=== PATIENT | female | born 1955 | race Two or more races ===

== ENCOUNTER 2018-01-23 08:05 | Outpatient (CLI) | payer OTHER | END 2018-01-23 08:18 | disposition home or self-care (01) | LOC: LAB 08:05 | DX: E11.65 Type 2 diabetes mellitus with hyperglycemia (principal); E78.2 Mixed hyperlipidemia; E03.8 Other specified hypothyroidism; R80.8 Other proteinuria ==

== ENCOUNTER 2018-05-06 07:36 | Outpatient (CLI) | payer OTHER | END 2018-05-06 07:42 | disposition home or self-care (01) | LOC: LAB 07:36 | DX: E66.09 Other obesity due to excess calories (principal); E11.65 Type 2 diabetes mellitus with hyperglycemia; E78.2 Mixed hyperlipidemia; E03.8 Other specified hypothyroidism; R80.8 Other proteinuria ==

== ENCOUNTER 2018-08-01 11:49 | Outpatient (CLI) | payer OTHER | END 2018-08-01 18:28 | disposition home or self-care (01) | LOC: LAB 11:49 | DX: E11.65 Type 2 diabetes mellitus with hyperglycemia (principal); E78.2 Mixed hyperlipidemia; E03.8 Other specified hypothyroidism; E55.9 Vitamin D deficiency, unspecified; R80.8 Other proteinuria; N39.0 Urinary tract infection, site not specified; N39.3 Stress incontinence (female) (male) ==

== ENCOUNTER → 2018-08-02 12:48 | Outpatient (CLI) | payer OTHER | END | disposition home or self-care (01) | LOC: LAB 12:48 | DX: E11.65 Type 2 diabetes mellitus with hyperglycemia (principal); E78.2 Mixed hyperlipidemia; E03.8 Other specified hypothyroidism; E55.9 Vitamin D deficiency, unspecified; R80.8 Other proteinuria; N39.0 Urinary tract infection, site not specified; N39.3 Stress incontinence (female) (male); Z12.11 Encounter for screening for malignant neoplasm of colon ==

== ENCOUNTER 2018-08-16 11:51 | Outpatient (CLI) | payer OTHER | END 2018-08-16 11:59 | disposition home or self-care (01) | LOC: LAB 11:51 | DX: N39.0 Urinary tract infection, site not specified (principal); R82.79 Other abnormal findings on microbiological examination of urine ==

== ENCOUNTER 2019-01-03 07:11 | Outpatient (CLI) | payer OTHER | END 2019-01-03 07:16 | disposition home or self-care (01) | LOC: LAB 07:11 | DX: E11.65 Type 2 diabetes mellitus with hyperglycemia (principal); E78.2 Mixed hyperlipidemia; E03.8 Other specified hypothyroidism; R80.8 Other proteinuria; N39.0 Urinary tract infection, site not specified; N39.3 Stress incontinence (female) (male) ==

== ENCOUNTER 2019-05-30 08:21 | Outpatient (CLI) | payer OTHER | END 2019-05-30 08:28 | disposition home or self-care (01) | LOC: LAB 08:21 | DX: R79.89 Other specified abnormal findings of blood chemistry (principal); E03.8 Other specified hypothyroidism; E11.9 Type 2 diabetes mellitus without complications ==

== ENCOUNTER → 2019-11-20 | Outpatient (CLI) | payer OTHER | END | disposition home or self-care (01) | LOC: MAMO-SONO 10:15 → RAD 11:47 | DX: D24.1 Benign neoplasm of right breast (principal); D24.2 Benign neoplasm of left breast; E04.2 Nontoxic multinodular goiter; E06.5 Other chronic thyroiditis; M16.12 Unilateral primary osteoarthritis, left hip ==

== ENCOUNTER 2021-12-11 07:51 | Emergency (ER) | payer OTHER ==
[~2021-12-11] VITALS: Ht 149.9 cm; Wt 62.6 kg
[2021-12-11] MEDS ORDERED: LEVOTHYROXINE125 MCG PO (08:02)
[2021-12-11] MEDS ORDERED: JARDIANCE25 MG PO (08:02)
[2021-12-11] MEDS ORDERED: METFORMIN HCL1000 M3 PO (08:02)
[2021-12-11] MEDS ORDERED: ROSUVASTATIN CA20 MG PO (08:03)
[2021-12-11] MEDS ORDERED: VITAMIN D3125 MC1 PO (08:03)
[2021-12-11] MEDS ORDERED: ADULT LOW DOSE81 M1 (08:04)
[2021-12-11] MEDS ORDERED: KETO10TA2 PO (13:18)
== END 2021-12-11 13:24 | disposition home or self-care (01) ==
LOC: ER 07:51
DX: S90.01XA Contusion of right ankle, initial encounter (principal); V29.9XXA Motorcycle rider (driver) (passenger) injured in unspecified traffic accident, initial encounter; Y93.I9 Activity, other involving external motion; Y92.410 Unspecified street and highway as the place of occurrence of the external cause